=== PATIENT | female | born 1950 | race Caucasian/White ===

== ENCOUNTER 2022-06-16 16:20 | Emergency (ER) | payer MEDICARE ==
[2022-06-16 17:00] LABS: #Eosinphils 0.1 10x3/uL (0.0-0.5); #Monocytes 0.8 10x3/uL (0.0-1.1); #Neutrophils 6.2 10x3/uL (1.5-8.4); %Basophils 0.5 % (0.0-2.0); %Lymphocytes 16.4 % (18.0-47.0); %Monocytes 9.7 % (0.0-10.0); %Neutrophils 71.9 % (40.0-75.0); Hemoglobin 15.6 g/dL (12.0-15.5); Mean Corpuscular HGB CONC 35.1 g/dL (32.0-36.0); Mean Corpuscular Hemoglobin 30.8 pg (27.0-33.0); Mean Corpuscular Volume 87.9 fl (81.6-98.3); Mean Platelet Volume 9.1 fl (7.4-10.4); Platelet Count 395 10x3/uL (150-450); RBC Distribution Width 12.9 % (11.5-14.5); Red Blood Cell (RBC) Count 5.06 10x6/uL (3.90-5.03); White Blood Cell (WBC) Count 8.6 10x3/uL (3.5-10.5)
[2022-06-16] MEDS ORDERED: Ondansetron PF 4 MG/2 ML Vial ONE (17:06)
[2022-06-16 17:11] LABS: ALT (SGPT) 196 U/L (8-55); AST (SGOT) 52 U/L (5-34); Albumin 4.7 g/dL (3.4-4.8); Alkaline Phosphatase 152 U/L (40-110); Anion Gap 17 mmol/L (10-20); BUN (Urea Nitrogen) 56 mg/dL (9.8-20.1); Bilirubin, Total 0.6 mg/dL (0.2-1.2); Calc. Creatinine Clearance 0 mL/min (70-130); Calcium 9.7 mg/dL (7.8-10.44); Carbon Dioxide 18 mmol/L (23-31); Chloride 105 mmol/L (98-107); Estimated GFR 30; Globulin 2.9 g/dL (2.4-3.5); Glucose 175 mg/dL (83-110); Lipase 84 U/L (8-78); Protein, Total 7.6 g/dL (5.8-8.1); Sodium 137 mmol/L (136-145)
[2022-06-16 17:12] LABS: Potassium 2.8 mmol/L (3.5-5.1)
[2022-06-16] MEDS ORDERED: Magnesium 2 GM/50 ML BAG (IN WATER) ONE (18:18)
[2022-06-16] MEDS ORDERED: Potassium Chloride 20 MEQ TAB ONE (18:18)
[2022-06-16] MEDS ORDERED: NS 0.9% w/ 20 MEQ KCL 1,000 ML IV SCH (20:00)
[2022-06-16] MEDS ORDERED: NS 0.9% w/ 20 MEQ KCL 1,000 ML ONE (20:02)
== END 2022-06-16 22:21 | disposition home or self-care (01) ==
LOC: CSHERS 16:20
DX: R19.7 Diarrhea, unspecified (principal); E87.6 Hypokalemia; N17.9 Acute kidney failure, unspecified; R79.89 Other specified abnormal findings of blood chemistry; I10 Essential (primary) hypertension; I48.91 Unspecified atrial fibrillation
CPT/HCPCS: 74176; 80053; 83605; 83690; 84484; 85025; 87177; 87324; 87449; 93005; 96361; 96365; 96366; 96367; 96375; J2405; J3475; J3480